=== PATIENT | male | born 1970 | race Caucasian/White ===

== ENCOUNTER 2018-01-08 08:13 | Emergency (ER) | payer OTHER ==
[2018-01-08 08:24] VITALS: BP 126/86
--- NOTE | 2018-01-08 08:33 | UC ---
Ear Complaint HPI - HPI Summary HPI Summary: This is marcin Smithdoron Danielle documenting for attending Deni Hubbard MD. This patient is a 47 year old M presenting to [facility] with a chief complaint of right ear pain for the last 4 days. The patient rates the pain 2/10 in severity. Patient reports a clicking noise in his ear and mild eye discharge. Patient denies left ear sx, rhinorrhea, ear pain, itching, and sore throat. NKDA. Pt has been swimming recently. He states he is concerned because he will be flying soon. - History of Current Complaint Chief Complaint: UCEar Stated Complaint: EAR PAIN Hx Obtained From: Patient Onset/Duration: Lasting Days, Still Present Severity Initially: Mild Severity Currently: Mild Pain Intensity: 2 Pain Scale Used: 0-10 Numeric Associated Signs/Symptoms: Negative: Hearing Loss, URI Symptoms - Allergies/Home Medications Allergies/Adverse Reactions: Allergies Allergy/AdvReac Type Severity Reaction Status Date / Time No Known Allergies Allergy Verified 01/08/18 08:25 PMH/Surg Hx/FS Hx/Imm Hx - Additional Past Medical History Additional PMH: Gout Endocrine History: Dyslipidemia - Surgical History Surgical History: None - Family History Known Family History: Positive: Cardiac Disease, Hypertension - Social History Occupation: Employed Full-time Alcohol Use: Occasionally Substance Use Type: None Smoking Status (MU): Never Smoked Tobacco Review of Systems Eyes: Drainage ENT: Ear Ache All Other Systems Reviewed And Are Negative: Yes Physical Exam - Summary Physical Exam Summary: General: well-appearing, no pain distress Skin: warm, color reflects adequate perfusion, dry Head: normal Eyes: EOMI, COLLEEN ENT: small amount of cerumen in the right ear canal. There appears to fluid behind the right TM. Neck: supple, nontender Respiratory: CTA, breath sounds present Cardiovascular: RRR Abdomen: soft, nontender Bowel: present Musculoskeletal: normal, strength/ROM intact Neurological: sensory/motor intact, A&O x3 Psychological: affect/mood appropriate Triage Information Reviewed: Yes Vital Signs: Initial Vital Signs Temp 99 F 01/08/18 08:22 Pulse 72 01/08/18 08:22 Resp 18 01/08/18 08:22 BP 126/86 01/08/18 08:22 Pulse Ox 98 01/08/18 08:22 Vital Signs Reviewed: Yes Ear Complaint Course/Dx - Course Course Of Treatment: DISCUSSED STARTING DECONGESTANT. PATIENT IS TRAVELING OUT OF STATE SOON. RX EAR DROPS AND PO ABX TO START IF CONDITION WORSES. F/U PMD; RECHECK SOONER IF WORSE. - Differential Dx/Diagnosis Provider Diagnoses: RIGHT EAR PAIN. SEROUS OTITIS MEDIA Discharge - Sign-Out/Discharge Documenting (check all that apply): Patient Departure - Discharge Plan Condition: Stable Disposition: HOME Prescriptions: Amoxicillin/Clavulanate TAB* [Augmentin TAB 875*] 875 mg PO BID #20 tab Ciprofloxacin/Hydrocortisone [Cipro Hc Otic Suspension] 3 drop OT BID #10 ml Patient Education Materials: Earache (ED) Referrals: Ricardo Tobias MD [Primary Care Provider] - Additional Instructions: FOLLOW UP WITH YOUR DOCTOR IF NOT COMPLETELY IMPROVED. USE AN OVER THE COUNTER ANTIHISTAMINE SUCH LORATADINE. GET RECHECKED FOR ANY WORSENING OF YOUR CONDITION OR QUESTIONS OR CONCERNS. - Billing Disposition and Condition Condition: STABLE Disposition: Home Attestation Statement Scribe Attestation: This is marcin Danielle documenting for attending eDni Hubbard MD. User Type: Provider with Scribe Provider Attestation: The documentation recorded by the scribe accurately reflects the service I personally performed and the decisions made by me.
== END 2018-01-08 09:00 | disposition home or self-care (01) ==
LOC: UCEAST 08:13
DX: H65.91 Unspecified nonsuppurative otitis media, right ear (principal)
CPT/HCPCS: 99212; G0463

== ENCOUNTER 2019-04-15 08:29 | Emergency (ER) | payer OTHER ==
[2019-04-15 08:41] VITALS: BP 152/82
--- NOTE | 2019-04-15 09:07 | UC ---
Respiratory Complaint HPI - HPI Summary HPI Summary: CHIEF COMPLAINT and HPI: This is a previously healthy white male complains of, a 5 day history of severe cough. This condition worsened last night. He denies chest pain but says that he has had fever and chills. In the urgent care center his temperature is 98.4. VITAL SIGNS & SaO2 REVIEWED. Within normal limits unless noted here. NURSES NOTE REVIEWED."Friday headache, stomach cramps. "Lost equilibrium", now having a cough that has gotten worse. Still headache, chest hurts with cough." BP 152/82. no history of hypertension. - History of Current Complaint Chief Complaint: UCRespiratory Stated Complaint: COUGH Time Seen by Provider: 04/15/19 09:05 Pain Intensity: 5 - Allergies/Home Medications Allergies/Adverse Reactions: Allergies Allergy/AdvReac Type Severity Reaction Status Date / Time No Known Allergies Allergy Verified 04/15/19 08:41 Home Medications: Home Medications Ibuprofen TAB* [Advil TAB*] 600 mg PO Q6H PRN 04/15/19 [History Confirmed ] guaiFENesin/CODIEN 100MG-10MG* [Robitussin AC 100Mg-10Mg*] 5 ml PO Q4H PRN 04/15 [History Confirmed 04/15/19] PMH/Surg Hx/FS Hx/Imm Hx - Additional Past Medical History Additional PMH: PAST MEDICAL HISTORY- no significant past medical history. CHRONIC and RECURRENT HEALTH PROBLEM LIST REVIEWED. Information relevant to present complaint: none. VISIT HISTORY REVIEWED: noncontributory. MEDICATIONS & ALLERGIES REVIEWED.no allergies. HYPERTENSION STATUS: FAMILY HISTORY: hypertension, cardiovascular disease, diabetes SOCIAL HISTORY: non-smoker, lives with family , and works as a employment office clerk.. Previously Healthy: Yes - Surgical History Surgical History: None - Family History Known Family History: Positive: Cardiac Disease, Hypertension - Social History Alcohol Use: Rare Substance Use Type: None Smoking Status (MU): Never Smoked Tobacco Review of Systems All Other Systems Reviewed And Are Negative: Yes Constitutional: Positive: Fever, Chills Skin: Positive: Negative Eyes: Positive: Negative ENT: Positive: Negative Respiratory: Positive: Cough Cardiovascular: Positive: Negative Gastrointestinal: Positive: Negative Genitourinary: Positive: Negative Is Patient Immunocompromised?: No Physical Exam - Summary Physical Exam Summary: Appearance: The patient is well-appearing, is in no pain or distress, and is well-nourished. Eyes: Conjunctiva are clear. Pupils are equal and reactive to light and accommodation. Extra ocular muscle movement is intact. ENT: The hearing is grossly normal, the pharynx is normal, and the TMs are normal. There is no muffled or hoarse voice. No stridor. Neck: The neck is supple and there is no lymphadenopathy. Respiratory: The chest is non-tender to palpation and without crepitus. The lungs are clear, there are normal breath sounds, and there is no respiratory distress. No wheezes, rales or rhonchi. Extended expiratory phase bilaterally. Cardiovascular: Heart sounds reveal a regular rate and rhythm. There are no clicks, rubs or murmurs. There are no carotid bruits or thrills. Circulation is grossly intact. Abdomen: The abdomen is soft and nontender. There is no organomegaly. Bowel sounds are present and within normal limits. No point tenderness at McBurneys point. No CVA tenderness. Musculoskeletal: Strength is intact. The patient moves all extremities. Neurological: The patient is alert. Motor and sensory are examination grossly intact. Speech is normal. Psychological: The patient displays age appropriate behavior, and is conversant. GCS=15. Skin: Negative for rashes. Triage Information Reviewed: Yes Vital Signs: Initial Vital Signs Temp 98.4 F 04/15/19 08:36 Pulse 73 04/15/19 08:36 Resp 16 04/15/19 08:36 BP 152/82 04/15/19 08:36 Pulse Ox 98 04/15/19 08:36 Respiratory Course/Dx - Course Course Of Treatment: Patient presents with cough. Differential diagnosis includes viral URI and pneumonia. More serious diagnoses would include pulmonary embolus, pneumothorax , and foreign body aspiration. Physical examination is consistent with viral URI or atypical bronchitis. Patient also has bronchospasm. Diagnosis is consistent with bronchitis with bronchospasm Treatment is . Zithromax and albuterol with spacer as well as symptomatic treatment. - Differential Dx/Diagnosis Differential Diagnosis/HQI/PQRI: Bronchitis, Influenza, Lower Resp Infection Provider Diagnosis: Bronchitis with bronchospasm Discharge ED - Sign-Out/Discharge Documenting (check all that apply): Patient Departure All imaging exams completed and their final reports reviewed: No Studies - Discharge Plan Condition: Stable Disposition: HOME Prescriptions: Albuterol HFA INHALER* [Ventolin HFA Inhaler*] 1 - 2 puff INH Q4H #1 mdi MDD 8 puffs Azithromycin TAB* [Zithromax TAB*] 250 mg PO DAILY #6 tab MDD 2 Patient Education Materials: Acute Bronchitis (ED), How to Use a Nebulizer (ED) , Bronchospasm (ED) Referrals: Ricardo Tobias MD [Primary Care Provider] - Additional Instructions: WE DISCUSSED: PLEASE SEEK CARE AT THE EMERGENCY DEPARTMENT IF SYMPTOMS WORSEN OR IF NEW SYMPTOMS DEVELOP. FOLLOW UP WITH YOUR PRIMARY CARE PHYSICIAN IF CONDITION CONTINUES BEYOND 3 DAYS WITHOUT IMPROVEMENT. YOUR DIAGNOSIS IS: BRONCHITIS WITH BRONCHOSPASM YOUR PRESCRIPTION RECOMMENDATION IS: ALBUTEROL INHALER WITH SPACER; TWO PUFFS TWO TO THREE TIMES A DAY FOR COUGH; USE FOR 3-5 DAYS; Z TORSTNE. OTHER INSTRUCTIONS: Hypertension Discharge Instructions: Your blood pressure reading today was 152/82, indicating HYPERTENSION. Follow- up with your primary care provider within 4 weeks for blood pressure check and appropriate recommendations and treatment, as needed. FOR PAIN AND/OR SLEEP: For pain: Ibuprofen (Motrin and other brand names) 400-600mg PLUS acetaminophen (Tylenol and other brand names) 500mg - 1000mg every 8 hours. I will be here in two days if you have any questions or concerns. Any illness causing cough, congestion, sore throat or sinus discomfort can be helped by doing the following: STAND UNDER SHOWER STREAM TO LOOSEN SECRETIONS. STAY AWAY FROM ANY SMOKE OR IRRITANTS. WHAT ELSE CAN HELP RELIEVE YOUR SYMPTOMS: GENERAL TYPES OF MEDICINE THAT MAY HELP DECONGESTANTS: helps relieve stuffiness and clears sinuses. Pseudoephedrine ( Sudafed or generic) is effective but you need to ask the pharmacist for it because it may be kept behind the counter. ANTIHISTAMINES: are NOT helpful in many colds and flus because they can worsen sore throat, dry eyes and mouth and cause drowsiness. Examples are diphenhydramine, doxylamine and chlorpheniramine. They can help dry you out if you are having profuse, clear drainage from the nose. EXPECTORANTS: helps thin mucous in the nose and chest, making it easier to clear the fluid out. Expectorants are in most combination cough/cold remedies and should be taken with plenty of water. Guaifenesin is the most common expectorant and it comes in pill or liquid form. Mucinex is an extended release form of guaifenesin. COUGH SUPPRESANT: reduces the body's cough reflex. Dextromethorphan is in over the counter products. Rarely, narcotics such as codeine or hydrocodone are used to suppress cough. SPECIFIC MEDICATIONS: Some of these may come in combination. In general, they all contain the same or similar active ingredients. The most important goal is to liquefy all the phlegm and get it out of your head and chest: The following medicines (you can buy them without prescription) may help: To help with cough: DEXTROMETHORPHAN (Vicks, Robitussin, Nyquil and other brands) To help break up phlegm: GUAIFENESIN (Mucinex, Robitussin, other brands) To help clear congestion: PSEUDOEPHEDRINE (Sudafed, Dimetapp, other brands) TRY TO CLEAR NOSE: AFRIN NASAL SPRAY: 2-3 SPRAYS PER NOSTRIL, TWICE A DAY FOR TWO DAYS ONLY. USEFUL WAYS TO FEEL BETTER WITHOUT MEDICATIONS: STAND UNDER SHOWER STREAM TO LOOSEN SECRETIONS. USE A VAPORIZOR. STAY AWAY FROM ANY SMOKE OR IRRITANTS. USE SALINE NASAL SPRAY TO KEEP FLOW OF MUCOUS FROM NOSTRILS AND SINUSES. CONSIDER USING NETI POT TO HELP WITH ALLERGIES AND CONGESTION IN THE NOSE. USE THIS THREE TIMES A WEEK. YOU CAN GET THIS AT [facility] IN [place] OR VARIOUS DRUG[facility]ORES. DRINK LOTS OF WARM FLUIDS USEFUL HOME REMEDIES: WARM WATER GARGLES, WITH TSP OF SALT PER 8 OUNCES OF WATER, GARGLE FOR A FEW SECONDS AND SPIT OUT; GARGLE AND SPIT OUT; EVERY THREE HOURS. AND/OR: WARM WATER OR TEA, HONEY AND LEMON; 2-3 CUPS A DAY. FOR SORE THROAT: KEEP THROAT MOIST WITH LOZENGES; TEA AND HONEY. USE WARM WATER GARGLES 3-4 TIMES A DAY. FOLLOW UP: RE-CHECK IN 1O DAYS, NEEDED, IF YOU ARE NOT IMPROVING. RETURN HERE OR SEE YOUR PHYSICIAN. RE-CHECK SOONER IF INCREASED PAIN OR TEMPERATURE. - Billing Disposition and Condition Condition: STABLE Disposition: Home
== END 2019-04-15 10:08 | disposition home or self-care (01) ==
LOC: UCEAST 08:29
DX: J40 Bronchitis, not specified as acute or chronic (principal); J98.01 Acute bronchospasm
CPT/HCPCS: 99212; G0463